=== PATIENT | female | born 1960 | race Caucasian/White ===

== ENCOUNTER → 2016-12-19 | Outpatient (CLI) | payer OTHER ==
[2016-12-19 09:34] LABS: BLOOD UREA NITROGEN 22 mg/dL (7-22); BUN/CREATININE RATIO 31.42 (6-20); CALCIUM 9.1 mg/dL (8.7-10.7); EST GLOMERULAR FILTRATION > 60 (>60 ml/min/1.73m(2))
[2016-12-19 14:27] LABS: COLLECTION TIME,URINE 24 HOURS; CREATININE,URINE 21.2; Total Volume, Urine 5035 ML
[2016-12-22 12:54] LABS: COLLECTION DURATION 24 h (()); URINE VOLUME 5035 mL (())
[2016-12-22 17:04] LABS: CALCIUM 24HR URINE <50 mg/24 h (<200)
== END ==
LOC: LAB 08:28
PROVIDERS: ATTEND Internal Medicine Endocrinology, Diabetes & Metabolism
DX: E21.2 Other hyperparathyroidism (principal)
CPT/HCPCS: 36415; 80048; 82306; 82340; 82575; 83970; 84300; 84443

== ENCOUNTER → 2016-12-31 | Outpatient (CLI) | payer OTHER ==
--- NOTE | 2016-12-31 10:38 | DI ---
MRI LEFT SHOULDER SCAN, 12/31/2016 8:53 AM: Clinical History: Left shoulder pain. Previous Exam: None at this facility. Technique: Axial, coronal, and sagittal fat saturated PD; axial gradient FE; coronal fat saturatedT2 weighted; sagittal T2 weighted. There is no soft tissue edema. 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 There is a small amount of fluid in the subacromion bur sa. Articular surface partial thickness tear is present in the anterior portion of the supraspinatus tendon and it measures approximately 5 mm x 8 mm in transverse and AP dimensions. The infraspinatus t endon is normal. There is tendinosis in the tendon of the long head of the biceps muscle. There is a type II SLAP tear with separation from the tendon of the long head of the biceps muscle with inferior displacement of the labrum. There is a biceps labral sulcus present as well. The inferior glenohumer al ligamentous complex and inferior labrum are normal. Axial scans confirm the cancellous edema at the AC joint. The subscapularis tendon and the anterior a nd posterior labrum are intact. The articular surfaces of the glenoid fossa and the humeral head are normal. Sagittal scans confirm a partial thickness tear of the supraspinatus tendon and the biceps tendinosis . There is a type I acromion, and there are no erosive changes of the glenoid fossa. No muscle edema or atrophy is noted. Readin. There is an articular surface partial-thickness tear of the supraspinatus tendon measuring 5 x 8 mm in transverse and AP dimensions. A type II SLAP tear is present with inferior displacement of the labrum from the biceps tendon. There is tendinosis of the biceps tendon in the rotator interval. 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 2. The infraspinatus, teres minor, and subscapularis tendons are normal. There is no muscle atrophy or edema of the muscles. The patient has a type I acromion.
== END ==
LOC: MRI 08:44
PROVIDERS: ATTEND Orthopaedic Surgery
DX: M25.512 Pain in left shoulder (principal); S43.432A Superior glenoid labrum lesion of left shoulder, initial encounter; M19.012 Primary osteoarthritis, left shoulder
CPT/HCPCS: 73221

== ENCOUNTER → 2017-02-03 | Outpatient (CLI) | payer OTHER | LOC: LAB 12:48 | PROVIDERS: ATTEND Internal Medicine Endocrinology, Diabetes & Metabolism | DX: T65.891A Toxic effect of other specified substances, accidental (unintentional), initial encounter (principal) | CPT/HCPCS: 36415; 82306 ==

== ENCOUNTER → 2017-03-03 | Outpatient (CLI) | payer OTHER | LOC: LAB 10:53 | PROVIDERS: ATTEND Internal Medicine Endocrinology, Diabetes & Metabolism | DX: E03.8 Other specified hypothyroidism (principal); E06.3 Autoimmune thyroiditis | CPT/HCPCS: 36415; 82306; 84443 ==

== ENCOUNTER → 2017-04-26 | Outpatient (CLI) | payer OTHER ==
[2017-04-26 09:22] LABS: BLOOD UREA NITROGEN 20 mg/dL (7-22); BUN/CREATININE RATIO 28.57 (6-20); CALCIUM 9.1 mg/dL (8.7-10.7); EST GLOMERULAR FILTRATION > 60 (>60 ml/min/1.73m(2))
== END ==
LOC: LAB 08:28
PROVIDERS: ATTEND Internal Medicine Endocrinology, Diabetes & Metabolism
DX: E03.8 Other specified hypothyroidism (principal); E06.3 Autoimmune thyroiditis; E21.1 Secondary hyperparathyroidism, not elsewhere classified; T45.2X1S Poisoning by vitamins, accidental (unintentional), sequela
CPT/HCPCS: 36415; 80048; 82306; 83970; 84443